=== PATIENT | female | born 1945 | race Caucasian/White ===

== ENCOUNTER 2020-01-25 08:49 | Emergency (ER) | payer MEDICARE, OTHER, MEDICAID ==
[~2020-01-25] VITALS: Ht 165.1 cm; Wt 70.3 kg
[2020-01-25] MEDS ORDERED: ASPIRIN 81 MG CHEW (CHILDREN'S ASA) PO ONE (09:00)
[2020-01-25 09:07] LABS: BASOPHILS % (AUTO) 1 % (0-10); EOSINOPHILS # (AUTO) 0.2 10^3/uL (0.0-0.3); EOSINOPHILS % (AUTO) 3 % (0-10); HEMATOCRIT 41 % (35-52); HEMOGLOBIN 14.2 G/DL (11.5-16.0); LYMPHOCYTES # (AUTO) 2.9 X 10^3 (1.0-4.0); LYMPHOCYTES % (AUTO) 45 % (12-44); MEAN CORPUSCULAR HEMOGLOBIN 31 PG (25-34); MEAN CORPUSCULAR HGB CONC 35 G/DL (32-36); MEAN CORPUSCULAR VOLUME 89 FL (80-99); MEAN PLATELET VOLUME 10.7 FL (7.4-10.4); MONOCYTES # (AUTO) 0.6 X 10^3 (0.0-1.0); MONOCYTES % (AUTO) 9 % (0-12); NEUTROPHILS # (AUTO) 2.8 X 10^3 (1.8-7.8); NEUTROPHILS % (AUTO) 43 % (42-75); PLATELET COUNT 252 10^3/uL (130-400); RED CELL DISTRIBUTION WIDTH 13.5 % (10.0-14.5); WHITE BLOOD COUNT 6.4 10^3/uL (4.3-11.0)
[2020-01-25 09:17] LABS: ALBUMIN 4.6 GM/DL (3.2-4.5)
[2020-01-25 09:18] LABS: CHLORIDE 106 MMOL/L (98-107); POTASSIUM 3.9 MMOL/L (3.6-5.0); SODIUM 139 MMOL/L (135-145)
[2020-01-25 09:19] LABS: CALCIUM 10.1 MG/DL (8.5-10.1)
[2020-01-25 09:20] LABS: GLUCOSE 94 MG/DL (70-105); TOTAL PROTEIN 7.6 GM/DL (6.4-8.2)
[2020-01-25 09:21] LABS: CARBON DIOXIDE 24 MMOL/L (21-32)
[2020-01-25 09:22] LABS: BILIRUBIN,TOTAL 0.5 MG/DL (0.1-1.0)
[2020-01-25 09:23] LABS: ALKALINE PHOSPHATASE 83 U/L (40-136); PROTHROMBIN TIME PATIENT 13.5 SEC (12.2-14.7)
[2020-01-25 09:24] LABS: GFR ESTIMATED 54
[2020-01-25 09:25] LABS: BUN/CREATININE RATIO 22
[2020-01-25 09:27] LABS: ALANINE AMINOTRANSFERASE 16 U/L (0-55); MAGNESIUM 2.1 MG/DL (1.6-2.4)
--- NOTE | 2020-01-25 09:43 | Diagnostic Imaging Report ---
Indication: Chest discomfort and shortness of air. Time of exam: 9:15 AM No prior studies are available for comparison. The heart size is normal. The pulmonary vascularity is unremarkable. The lungs are clear. No infiltrate, effusion or pneumothorax is detected. Impression: No acute cardiopulmonary process is detected. Dictated by: Dictated on workstation # [id number]
--- NOTE | 2020-01-25 10:12 | ED Chest Pain ---
General Chief Complaint: Chest Pain Stated Complaint: CHEST PRESSURE,SOA Nursing Triage Note: Pt amb to room #5 with c/o chest discomfort et SOA. Pt reports s/s began approx 3-4 days ago (01/22/20). Pt reports s/s to be associated with feelings of being off balance. During triage pt currently denies chest discomfort or SOA at this time. A&OX4. Nursing Sepsis Screen: No Definite Risk Source: patient, old records Exam Limitations: no limitations History of Present Illness Date Seen by Provider: January 25, 2020 Time Seen by Provider: 08:49 Initial Comments This 74-year-old woman presents to the emergency room with right sided chest tightness and shortness of breath that started in the night. It may be a little worse with exertion or leaning forward. She is asymptomatic at present but had symptoms on her way into the emergency room. She was worked up extensively. [place], [place] in 2016. She presents paperwork from those visits. A stress echocardiogram was negative. EKG during the stress echo showed reversible ST changes suggestive of ischemia. A coronary calcium score was less than 25. The production control scheduler at that time felt her symptoms were likely due to vas ospasm or esophageal spasm. He started her on amlodipine as a trial. She did take amlodipine for a time but does not recall if it helped. Pain does not change with inspiration. She has not noted any particular exacerbating or alleviating factors. Symptoms are similar to those she had triggering the workup in [place]. Pain was in the right upper chest and numbness was radia ting down the left arm. Allergies and Home Medications Allergies Coded Allergies: No Known Drug Allergies (Unverified , 01/25/20) Patient Home Medication List Home Medication List Reviewed: Yes Review of Systems Review of Systems Constitutional: no symptoms reported EENTM: No Symptoms Reported Respiratory: See HPI Cardiovascular: See HPI Gastrointestinal: No Symptoms Reported Genitourinary: No Symptoms Reported Musculoskeletal: no symptoms reported Skin: no symptoms reported Psychiatric/Neurological: No Symptoms Reported Endocrine: No Symptoms Reported Hematologic/Lymphatic: No Symptoms Reported Past Epcdmbn-[place]-Nowfxh Hx Past Med/Social Hx: Reviewed Nursing Past Med/Soc Hx Patient Social History Alcohol Use: Denies Use Recreational Drug Use: No Smoking Status: Never a Smoker 2nd Hand Smoke Exposure: No Recent Infectious Disease Expo: No Recent Hopitalizations: No Seasonal Allergies Seasonal Allergies: No Past Medical History Surgeries: Yes Section, Eye Surgery Respiratory: No Cardiac: Yes (Stress test (ST depression et pain) ) Neurological: No : No Genitourinary: No Gastrointestinal: No Musculoskeletal: No Endocrine: No HEENT: Yes (Lasix to bilat eyes. ) Cancer: No Psychosocial: No Integumentary: No Physical Exam Vital Signs Vital Signs - First Documented 01/25/20 08:49 Temp 36.4 Pulse 72 Resp 14 B/P (MAP) 150/98 (115) Pulse Ox 98 O2 Delivery Room Air Capillary Refill : Less Than 3 Seconds Height, Weight, BMI Height: '" Weight: lbs. oz. kg; 25.00 BMI Method: General Appearance: No Apparent Distress, WD/WN HEENT: PERRL/EOMI, Normal ENT Inspection Neck: Normal Inspection; No JVD Respiratory: Chest Non Tender, Lungs Clear, Normal Breath Sounds, No Accessory Muscle Use, No Respiratory Distress Cardiovascular: Regular Rate, Rhythm, No Edema, No Murmur, Normal Peripheral Pulses Gastrointestinal: Normal Bowel Sounds, Non Tender, Soft Extremity: Normal Inspection, Non Tender, No Calf Tenderness, No Pedal Edema Neurologic/Psychiatric: Alert, Oriented x3, No Motor/Sensory Deficits, Normal Mood/Affect, quality lead II-XII Norm as Tested Skin: Normal Color, Warm/Dry Progress/Results/Core Measures Results/Orders Lab Results Laboratory Tests Test 01/25/20 08:30 01/25/20 08:55 01/25/20 10:55 Range/Units C-Reactive Protein High Sensitivity 0.03 0.00-0.50 MG/DL White Blood Count 6.4 4.3-11.0 10^3/uL Red Blood Count 4.60 4.35-5.85 10^6/uL Hemoglobin 14.2 11.5-16.0 G/DL Hematocrit 41 35-52 % Mean Corpuscular Volume 89 80-99 FL Mean Corpuscular Hemoglobin 31 25-34 PG Mean Corpuscular Hemoglobin Concent 35 32-36 G/DL Red Cell Distribution Width 13.5 10.0-14.5 % Platelet Count 252 130-400 10^3/uL Mean Platelet Volume 10.7 H 7.4-10.4 FL Neutrophils (%) (Auto) 43 42-75 % Lymphocytes (%) (Auto) 45 H 12-44 % Monocytes (%) (Auto) 9 0-12 % Eosinophils (%) (Auto) 3 0-10 % Basophils (%) (Auto) 1 0-10 % Neutrophils # (Auto) 2.8 1.8-7.8 X 10^3 Lymphocytes # (Auto) 2.9 1.0-4.0 X 10^3 Monocytes # (Auto) 0.6 0.0-1.0 X 10^3 Eosinophils # (Auto) 0.2 0.0-0.3 10^3/uL Basophils # (Auto) 0.0 0.0-0.1 10^3/uL Prothrombin Time 13.5 12.2-14.7 SEC INR Comment 1.0 0.8-1.4 Activated Partial Thromboplast Time 33 24-35 SEC Sodium Level 139 135-145 MMOL/L Potassium Level 3.9 3.6-5.0 MMOL/L Chloride Level 106 98-107 MMOL/L Carbon Dioxide Level 24 21-32 MMOL/L Anion Gap 9 5-14 MMOL/L Blood Urea Nitrogen 22 H 7-18 MG/DL Creatinine 1.00 0.60-1.30 MG/DL Estimat Glomerular Filtration Rate 54 BUN/Creatinine Ratio 22 Glucose Level 94 70-105 MG/DL Calcium Level 10.1 8.5-10.1 MG/DL Corrected Calcium 8.5-10.1 MG/DL Magnesium Level 2.1 1.6-2.4 MG/DL Total Bilirubin 0.5 0.1-1.0 MG/DL Aspartate Amino Transf (AST/SGOT) 19 5-34 U/L Alanine Aminotransferase (ALT/SGPT) 16 0-55 U/L Alkaline Phosphatase 83 40-136 U/L Myoglobin 63.3 10.0-92.0 NG/ML Troponin I < 0.028 < 0.028 <0.028 NG/ML B-Type Natriuretic Peptide 42.4 <100.0 PG/ML Total Protein 7.6 6.4-8.2 GM/DL Albumin 4.6 H 3.2-4.5 GM/DL Erythrocyte Sedimentation Rate 1 0-30 MM/HR My Orders Orders - FANNIE HEATON MD Cbc With Automated Diff (01/25/20 08:57) Magnesium (01/25/20 08:57) Chest 1 View, Ap/Pa Only (01/25/20 08:57) Ekg Tracing (01/25/20 08:57) Comprehensive Metabolic Panel (01/25/20 08:57) Myoglobin Serum (01/25/20 08:57) Protime With Inr (01/25/20 08:57) Partial Thromboplastin Time (01/25/20 08:57) O2 (01/25/20 08:57) Monitor-Rhythm Ecg Trace Only (01/25/20 08:57) Ed Iv/Invasive Line Start (01/25/20 08:57) Troponin I (01/25/20 08:57) Aspirin Chewable Tablet (Baby Aspirin Ch (01/25/20 09:00) BNP (01/25/20 10:03) Troponin I (01/25/20 11:00) Hs C Reactive Protein (01/25/20 10:35) Erythrocyte Sedimentation Rate (01/25/20 10:35) Medications Given in ED Current Medications Medications Dose Ordered Sig/Efren Route Start Time Stop Time Status Last Admin Dose Admin Aspirin 243 mg ONCE ONCE PO 01/25/20 09:00 01/25/20 09:01 DC 01/25/20 09:03 243 MG Vital Signs/I&O 01/25/20 01/25/20 01/25/20 08:49 08:49 12:09 Temp 36.4 36.4 Pulse 72 57 Resp 14 16 B/P (MAP) 150/98 (115) 152/83 (115) Pulse Ox 98 98 O2 Delivery Room Air Room Air Room Air Blood Pressure Mean: 115 Progress Progress Note #1: Time: 10:39 Progress Note Patient was seen and examined upon arrival. Initial workup was negative. She has remained free of pain since arrival. I discussed the case with Dr. Prieto and reviewed findings from her prior workup. A 2 hour troponin will be obtained and referral will be made as an outpatient if troponin is negative. Progress Note #2: Progress Note Repeat troponin was negative and patient remained free of chest pain. O utpatient follow-up was recommended. Initial ECG Impression Date: January 25, 2020 Initial ECG Impression Time: 08:49 Initial ECG Rate: 63 Initial ECG Rhythm: Normal Sinus Initial ECG Intervals: Normal Initial ECG Impression: Normal Comment Normal sinus rhythm with no ST elevation or depression. No abnormal intervals or axis deviation. Diagnostic Imaging Diagonstic Imaging: Xray Plain Films/CT/US/NM/MRI: chest Comments Chest x-ray viewed by me and report reviewed. See report below: NAME: CRESENCIO [facility]I [facility] REC#: [id number] PT STATUS: REG ER : 1945 PHYSICIAN: FANNIE HEATON MD ADMIT DATE: 01/25/20/ER Draft Date of Exam:01/25/20 CHEST 1 VIEW, AP/PA ONLY Indication: Chest discomfort and shortness of air. Time of exam: 9:15 AM No prior studies are available for comparison. The heart size is normal. The pulmonary vascularity is unremarkable. The lungs are clear. No infiltrate, effusion or pneumothorax is detected. Impression: No acute cardiopulmonary process is detected. Dictated on workstation # [id number] Dict: 01/25/20 0941 Trans: 01/25/20 0943 CVB [id number] Interpreted by: JORGE SHARP MD Departure Impression Primary Impression: Chest pain Qualified Codes: R07.9 - Chest pain, unspecified Additional Impression: Dyspnea Qualified Codes: R06.00 - Dyspnea, unspecified Disposition: 01 HOME, SELF-CARE Condition: Improved Departure-Patient Inst. Decision time for Depature: 11:57 Referrals: ROCIO PRIETO MD Patient Instructions: Chest Pain (DC), Acid Reflux (Gastroesophageal Reflux Disease), Adult (DC) Add. Discharge Instructions: Continue taking aspirin 81 mg daily. Please follow-up with Dr. Prieto (production control scheduler) as soon as possible. See his contact information below. Your symptoms may be in part due to acid reflux. I suggest a trial of antacid therapy such as Pepcid (famotidine) 20 mg twice daily for 2-4 weeks. Monitor symptoms during that time. Avoid the following: Eating large meals, eating close to bedtime, caffeine, c arbonation, chocolate, citrus fruits and juices, tomato products, other acidic foods, alcohol, tobacco, mints, fatty or greasy foods, spicy foods, NSAID medications such as ibuprofen or naproxen (baby aspirin is okay), or anything else you know irritates your stomach. Return to care if you have worsening symptoms. Establish with a primary care provider soon as possible. All discharge instructions reviewed with patient and/or family. Voiced understanding. Copy Copies To 1: ROCIO PRIETO MD, JOSHUA T MD January 25, 2020 10:12
[2020-01-25 12:09] VITALS: BP 152/83
== END 2020-01-25 12:09 | disposition home or self-care (01) ==
LOC: ER 08:52
DX: R07.89 Other chest pain (principal); R06.00 Dyspnea, unspecified
CPT/HCPCS: 36415; 71045; 80053; 83735; 83874; 83880; 84484; 85025; 85610; 85652; 85730; 86141; 93005; 93041

== ENCOUNTER → 2022-03-08 | Outpatient (CLI) | payer MEDICARE, MEDICAID ==
[~2022-03-08] MED LIST: RT-ALBUTEROL SULF 2.5 MG/3 ML PRE-MIX VIAL INH ONE
== END ==
LOC: RT 10:18
PROVIDERS: ATTEND Pediatrics
DX: R06.09 Other forms of dyspnea (principal)
CPT/HCPCS: 94060; 94726; 94729

== ENCOUNTER → 2022-03-25 | Outpatient (CLI) | payer MEDICARE, MEDICAID | LOC: CARD 08:30 | PROVIDERS: ATTEND Pediatrics | DX: I95.1 Orthostatic hypotension (principal); R06.00 Dyspnea, unspecified; R00.2 Palpitations ==

== ENCOUNTER → 2022-06-02 | Outpatient (CLI) | payer MEDICARE, MEDICAID | LOC: CARD 13:00 | PROVIDERS: ATTEND Internal Medicine Cardiovascular Disease | DX: I08.8 Other rheumatic multiple valve diseases (principal); I47.20 Ventricular tachycardia, unspecified | CPT/HCPCS: 93306 ==

== ENCOUNTER → 2022-06-10 | Outpatient (CLI) | payer MEDICARE, MEDICAID ==
[~2022-06-10] MED LIST changes: +CATHETER FLUSH 10 ML SYR IVP PRN; -RT-ALBUTEROL SULF 2.5 MG/3 ML PRE-MIX VIAL INH ONE
[2022-06-10 09:40] VITALS: BP 129/87
--- NOTE | 2022-06-11 09:01 | NUCLEAR STRESS TEST ---
TREADMILL NUCLEAR STRESS TEST Date of procedure: 06/10/2022. Primary care provider: No local physician. Admitting physician: Rm Rutledge Jr., MD. INDICATION: Ventricular tachycardia, unspecified. BASELINE ELECTROCARDIOGRAM: Sinus rhythm with possible old septal myocardial infarction STRESS TEST PROCEDURE: The patient was exercised for a total of 5 minutes and 10 seconds of the standard Chaz protocol achieving a maximum MET level of 7.1. The resting heart rate was 63 bpm and the peak heart rate was 139 bpm, which represents 96% of the maximum predicted heart rate. The resting blood pressure was 129/87 mmHg and the peak blood pressure was 189/81 mmHg. This represents a normal heart rate and a normal blood pressure response to exercise. The test was stopped due to target heart rate achieved. There was no chest discomfort during the test. There were no arrhythmias during the test. There were no significant stress induced electrocardiogram changes. The patient exhibited ex cellent exercise capacity for age. NUCLEAR PROCEDURE: The patient was administered 10.4 mCi of intravenous technetium 99m Tetrofosmin at rest for the rest images. The patient was subsequently administered 29.9 mCi of intravenous technetium 99 M Tetrofosmin at peak stress for the stress images. Following an appropriate wait after each injection, imaging was obtained. The images were subsequently processed and reformatted in the usual views. Gated imaging was obtained. The image quality was adequate with a mild degree of gastrointestinal attenuation artifact. CT attenuation correction was used as a adjunct to standard imaging. Both the corrected and uncorrected images were reviewed for interpretation. NUCLEAR RESULTS: There was normal myocardial perfusion in all segments without evidence of infarction or ischemia. There was normal left ventricular chamber size with an end-diastolic volume of 42 mL and an end-systolic volume of 12 mL. There was no evidence of transient ischemic dilatation. The TID ratio was 0.91. There was normal wall motion in all segments with a calculated ejection fraction of 71%. IMPRESSION: 1. Normal heart rate and blood pressure response to exercise. 2. There was no exercise-induced chest discomfort, arrhythmias, or electroca rdiogram changes during the test. 3. The patient exhibited excellent exercise capacity for age at 5 minutes and 10 seconds of the Chaz protocol. 4. There was normal myocardial perfusion in all segments without evidence of infarction or ischemia. 5. There was normal wall motion in all segments with a calculated ejection fraction of 71%. Certain portions of this document may have been dictated utilizing voice recognition technology. Inherent to this technology, typographical and grammatical errors may exist. As much as I am diligent to identify and correct these mistakes, some errors may remain in the document. RM RUTLEDGE JR, MD Jun 11, 2022 09:01
== END ==
LOC: CARD 08:03
PROVIDERS: ATTEND Internal Medicine Cardiovascular Disease
DX: I47.20 Ventricular tachycardia, unspecified (principal)
CPT/HCPCS: 78452; 93017; A9502

== ENCOUNTER → 2023-04-19 | Outpatient (CLI) | payer MEDICARE, MEDICAID ==
--- NOTE | 2023-04-19 11:45 | Diagnostic Imaging Report ---
INDICATION: Postmenopausal state. COMPARISON: None available. FINDINGS: AP Spine L2-L4: [BMD (g/cm2): 1.069] [T-Score: -1.1] [Z-Score: 0.8] [BMD Previous: na] [BMD % Change: na] LT Hip Neck: [BMD (g/cm2): 0.800] [T-Score: -1.7] [Z-Score: 0.4] LT Hip Total: [BMD (g/cm2):0.914] [T-Score:-0.7] [Z-Score: 1.2] [BMD Previous: na] [BMD % Change: na] RT Hip Neck: [BMD (g/cm2):0.767] [T-Score:-1.9] [Z-Score:0.2] RT Hip Total: [BMD (g/cm2):0.888] [T-score:-0.9] [Z-Score:1.0] [BMD Previous:na] [BMD % Change:na] *Indicates significant change from prior examination based on 95% confidence level. World Health Organization criteria for BMD interpretation classify patients as Normal (T-score at or above -1.0), Osteopenic (T-score between -1.0 and -2.5) or Osteoporotic (T-score at or below -2.5). LIMITATIONS AND MODIFICATION: None. FRACTURE RISK (FRAX SCORE): The ten year probability of (%): Major Osteoporotic Fracture: [14.2] Hip Fracture: [3.9] IMPRESSION: 1. Osteopenia (Low bone mass). 2. Baseline examination. 3. See below National Osteoporosis Foundation guidelines on when to potentially initiate pharmacologic therapy. Based on the National Osteoporosis Foundation Guidelines, pharmacologic treatment should be initiated in any of the following, unless clinical conditions suggest otherwise: * Any patient with prior fragility fracture of the hip or vertebrae. A spine fracture indicates 5X risk for subsequent spine fracture and 2X risk for subsequent hip fracture. * Osteoporosis (T-score <-2.5). * Postmenopausal women and men age 50 and older with low bone mass/osteopenia (T-score between -1.0 and -2.5) by DXA and 10-year major osteoporotic fracture greater than 20% or a 10-year probability of hip fracture greater than 3%. These fracture risks are supplied above in the FRAX score, if applicable. * Clinician judgement and/or patient preferences may indicate treatment for people with 10-year fracture probabilities above or below these levels. Dictated by: Dictated on workstation # [id number]
== END ==
LOC: RAD 10:52
PROVIDERS: ATTEND Pediatrics
DX: Z78.0 Asymptomatic menopausal state (principal); M85.80 Other specified disorders of bone density and structure, unspecified site
CPT/HCPCS: 77080